=== PATIENT | male | born 1955 | race Caucasian/White ===

== ENCOUNTER 2017-04-03 09:45 | Emergency (ER) | payer OTHER | END 2017-04-03 10:27 | disposition home or self-care (01) | LOC: ER 09:45 | DX: J20.9 Acute bronchitis, unspecified (principal); R05 Cough; Z85.46 Personal history of malignant neoplasm of prostate; F17.210 Nicotine dependence, cigarettes, uncomplicated; Z79.899 Other long term (current) drug therapy | CPT/HCPCS: 94664; 96372; 99283-25 ==